=== PATIENT | female | born 1980 | race Caucasian/White ===

== ENCOUNTER 2023-09-19 10:36 | Emergency (ER) | payer OTHER, SELFPAY ==
[2023-09-19 10:52] VITALS: BP 132/87; PULSE 98; RESP 16; TEMP 36.9; O2SAT 98
[2023-09-19 11:16] VITALS: BP 123/94; PULSE 91; RESP 18; O2SAT 99
--- NOTE | 2023-09-19 11:22 | DI.MRI_ITS ---
Exam(s) MR LUMBAR SPINE WO/W EXAM: MR LUMBAR SPINE WO/W CLINICAL HISTORY: BACK PAIN, FEVER TECHNIQUE: Multiplanar multisequence MRI of the Lumbar Spine was performed. CONTRAST MATERIAL: IV Contrast: 11 mL of Dotarem contrast administered. COMPARISON: No exams were available for comparison FINDINGS: Bones: The last intervertebral disc space is designated the L5/S1 level for the numbering purpose of this examination. The vertebral body heights are well maintained. Alignment is satisfactory. The sig nal characteristics are unremarkable. Cord: The conus tip ends at the T12 level. It is of normal size and signal intensity. T12-L1: No disc herniations or bulges are present. L1-2: No disc herniations or bulges are present. L2-3: No disc herniations or bulges are present. L3-4: No disc herniations or bulges are present. L4-5: No disc herniations or bulges are present. L5-S1: No disc herniations or bulges are present. Soft tissues: The visualized SI joints and sacrum are well maintained. The paraspinal soft tissues ar e unremarkable. There is no evidence of suspicious enhancement. IMPRESSION: Negative MRI of the lumbar spine. No evidence of discitis, osteomyelitis or epidural abscess. No ab normal enhancement in the paraspinal soft tissues. DATA REPOSITORY:
[2023-09-19 11:56] LABS: Abs Immature Grans 0.01 10^3/uL (0.0-0.06); Absolute Basophil Count 0.02 10^3/uL (0.0-0.2); Absolute Eosinophil Count 0.02 10^3/uL (0.0-0.7); Absolute Lymphocyte Count 0.82 10^3/uL (1.2-3.4); Absolute Monocyte Count 0.21 10^3/uL (0.1-0.8); Absolute Neutrophil Count 1.03 10^3/uL (1.2-6.7); Basophils % 0.9 %; Eosinophils % 0.9 %; HCT 39.6 % (36.0-46.0); HGB 13.7 g/dL (11.2-15.7); Immature Grans % 0.5 %; Lymphocytes % 38.9 %; MCH 32.6 pg (27.0-33.0); MCHC 34.6 % (32.0-36.0); MCV 94 fL (80-95); MPV 10.5 fL (8.0-11.0); Neutrophils % 48.8 %; Platelet Count 172 10^3/uL (130-400); RDW 11.3 % (11.7-14.6); RDW-SD 38.5 fL; WBC 2.11 10^3/uL (4.4-10.8)
[2023-09-19 11:59] LABS: COVID-19 PCR Negative (Negative); Influenza A PCR Negative (Negative); Influenza B PCR Negative (Negative); RSV PCR Negative (Negative)
[2023-09-19 12:00] LABS: Bilirubin Negative (Negative); Blood Negative (Negative); Clarity Clear (Clear); Glucose >=1000 mg/dL (Negative); Ketones 15 mg/dL (Negative); Leukocyte Esterase Negative (Negative); Nitrite Negative (Negative); Urobilinogen 0.2 mg/dL (Up to 0.2); pH 5.5 (5-8)
[2023-09-19 12:01] LABS: ESR 15 mm/hr (0-20)
[2023-09-19 12:03] LABS: Source Nasopharynx
[2023-09-19 12:12] LABS: ALT 33 U/L (14-59); AST 30 U/L (15-37); Albumin 4.1 g/dL (3.4-5.0); Alkaline Phosphatase 100 U/L (46-116); Anion Gap 11.2 mmol/L (3-11); BUN 10 mg/dL (7-18); Bilirubin, Total 0.39 mg/dL (0.2-1.0); C-Reactive Protein 0.81 mg/dL (<or=0.5); CO2 26.8 mmol/L (21.0-32.0); Calcium 9.4 mg/dL (8.5-10.1); Chloride 97 mmol/L (98-107); Creatine Kinase 132 U/L (26-192); Glucose 432 mg/dL (74-106); Potassium 4.3 mmol/L (3.5-5.1); Sodium 135 mmol/L (136-145); Total Protein 7.6 g/dL (6.4-8.2)
[2023-09-19 12:14] LABS: Bacteria Few HPF (Negative); C & S Indicated? No; Casts Negative LPF (Negative); Crystals Negative HPF (Negative); Epithelial Cells Many HPF (Negative); Mucus Negative (Negative); Other Cells Rare Yeast (Negative); RBC Negative HPF (0-2); WBC Negative HPF (0-5)
[2023-09-19 12:24] LABS: Procalcitonin 0.1 ng/mL
[2023-09-19] MEDS: Insulin REGULAR-Human 100 UNITS/ML UNIT 10 UNITS IV (13:05)
[2023-09-19] MEDS: Normal Saline 1,000 ML 1000 ML IV (13:05)
[2023-09-19 13:44] VITALS: BP 125/77; PULSE 76; O2SAT 95
--- NOTE | 2023-09-19 14:16 | ED.GENADUL_ITS ---
Discharge Plan Disposition Patient Disposition: Home Condition: Stable Discharge Details Clinical Impression: Acute hip pain, Acute hyperglycemia, Back pain Primary Care Provider: None,None ED Provider: Anita Pitt Home Meds and New Rx's Prescriptions: New gabapentin 300 mg capsule 300 mg PO QHS Qty: 60 0RF No Action insulin aspart U-100 [Novolog FlexPen U-100 Insulin] 100 unit/mL (3 mL) insulin pen 1 sliding scale dose subcut USEASDIRECTD Levemir FlexPen 100 unit/mL (3 mL) insulin pen 10 unit subcut QDAY lorazepam 1 mg PO DAILY PRN HPI General Date/Time Provider Initiated Documentation: 09/19/23 11:04 . Limitations to Documentation: no limitations . Information obtained by: patient . HPI Narrative: 43-year-old female with past medical history of type 1 insulin-dependent diabetes presents for evaluation of intermittent fevers and back pain. She reports that she had the onset of right lower back and hip pain about 1 month ago, she was evaluated at her home in the [facility]. She states that at that time it was noted at the hospital that she did have a slightly elevated fever, but no lab work was obtained. Her CT scan imaging was negative. She reports for the last week she has been having daily fever. She reports last highest fever was 3 days ago of 101. She has been taking Naprosyn twice daily which has been improving her body aches and fever. She denies any weakness in her lower extremities. She states that she does do insulin injections, does not have a continuous glucose monitor or insulin pump. She does report that there is an increase of dengue fever in the [facility] currently. Related Data Home Medications Medication Instructions Recorded Confirmed gabapentin 300 mg capsule 300 mg PO QHS #60 caps 09/19/23 insulin aspart U-100 100 unit/mL 1 sliding scale dose subcut 09/19/23 09/19/23 (3 mL) subcutaneous pen (Novolog USEASDIRECTD FlexPen U-100 Insulin aspart) insulin detemir U-100 100 unit/mL 10 unit subcut QDAY 09/19/23 09/19/23 (3 mL) subcutaneous pen (Levemir FlexPen) lorazepam 1 mg PO DAILY PRN 09/19/23 09/19/23 Previous Rx's Medication Instructions Recorded gabapentin 300 mg capsule 300 mg PO QHS #60 caps 09/19/23 Allergies Allergy/AdvReac Type Severity Reaction Status Date / Time Sulfa (Sulfonamide Allergy Hives Verified 09/19/23 10:59 Antibiotics) General Stated Complaint: GenMedical JOHN: 4 Exam Narrative Exam Narrative: Review of Systems: All systems reviewed & are unremarkable except as noted in HPI and below Well-developed, no acute distress Afebrile NCAT PERRL, normal conjunctiva RRR, no murmur Unlabored respiratory effort, clear bilaterally Nondistended abdomen, nontender Extremities w/o deformity, no cyanosis, no edema No midline back tenderness, step-off or deformity No rashes or lesions. no focal neurologic deficits Appropriate mood and affect Course Vital Signs Vital signs: Vital Signs Temperature 36.9 C 09/19/23 10:52 Pulse 98 H 09/19/23 10:52 Respiratory Rate 16 09/19/23 10:52 Blood Pressure 132/87 09/19/23 10:52 Pulse Oximetry 98 09/19/23 10:52 Temperature 36.9 C 09/19/23 10:52 Temperature Source Tympanic 09/19/23 10:52 Pulse 76 09/19/23 13:44 Respiratory Rate 18 09/19/23 11:16 Respiratory Effort Normal 09/19/23 11:16 Respiratory Depth Normal 09/19/23 11:16 Respiratory Pattern Normal 09/19/23 11:16 Blood Pressure 125/77 09/19/23 13:44 Pulse Oximetry 95 09/19/23 13:44 Oxygen Delivery Method Room Air 09/19/23 13:44 Oxygen Flow Rate 0 09/19/23 13:44 Pain Level 10 09/19/23 11:16 Comment right hip and lower back pain 09/19/23 11:16 Lab/Test Results Lab/Test Results: 09/19/23 11:49 Blood Blood Culture - Pending 09/19/23 11:49 Blood Blood Culture - Pending Laboratory Tests Range/Units 09/19/23 09/19/23 11:15 11:49 WBC (4.4-10.8) 10^3/uL 2.11 L RBC (3.93-5.22) 10^6/uL 4.20 Hgb (11.2-15.7) g/dL 13.7 Hct (36.0-46.0) % 39.6 MCV (80-95) fL 94 MCH (27.0-33.0) pg 32.6 MCHC (32.0-36.0) % 34.6 RDW (11.7-14.6) % 11.3 L Plt Count (130-400) 10^3/uL 172 MPV (8.0-11.0) fL 10.5 Immature Gran % % 0.5 Neutrophils % % 48.8 Lymphocytes % % 38.9 Monocytes % % 10.0 Eosinophils % % 0.9 Basophils % % 0.9 Nucleated RBC % (0.0-0.3) % 0.0 Absolute Neutrophils (1.2-6.7) 10^3/uL 1.03 L Absolute Lymphocytes (1.2-3.4) 10^3/uL 0.82 L Absolute Monocytes (0.1-0.8) 10^3/uL 0.21 Absolute Eosinophils (0.0-0.7) 10^3/uL 0.02 Absolute Basophils (0.0-0.2) 10^3/uL 0.02 ESR (0-20) mm/hr 15 Sodium (136-145) mmol/L 135 L Potassium (3.5-5.1) mmol/L 4.3 Chloride (98-107) mmol/L 97 L Carbon Dioxide (21.0-32.0) mmol/L 26.8 Anion Gap (3-11) mmol/L 11.2 H BUN (7-18) mg/dL 10 Creatinine (0.55-1.02) mg/dL 1.0 Est GFR (CKD-EPI 2020) (mL/min/1.73m2) 70.80 Glucose (74-106) mg/dL 432 H Calcium (8.5-10.1) mg/dL 9.4 Total Bilirubin (0.2-1.0) mg/dL 0.39 AST (15-37) U/L 30 ALT (14-59) U/L 33 Alkaline Phosphatase (46-116) U/L 100 Creatine Kinase (26-192) U/L 132 C-Reactive Protein (<or=0.5) mg/dL 0.81 H Total Protein (6.4-8.2) g/dL 7.6 Albumin (3.4-5.0) g/dL 4.1 Procalcitonin ng/mL 0.1 Urine Color (Yellow) Yellow Urine Clarity (Clear) Clear Urine pH (5-8) 5.5 Ur Specific [place] (1.005-1.025) 1.010 Urine Protein (Neg-Trace) mg/dL Negative Urine Ketones (Negative) mg/dL 15 H Urine Blood (Negative) Negative Urine Nitrite (Negative) Negative Urine Bilirubin (Negative) Negative Urine Urobilinogen (Up to 0.2) mg/dL 0.2 Ur Leukocyte Esterase (Negative) Negative Urine RBC (0-2) HPF Negative Urine WBC (0-5) HPF Negative Ur Epithelial Cells (Negative) HPF Many Urine Crystals (Negative) HPF Negative Urine Bacteria (Negative) HPF Few Urine Casts (Negative) LPF Negative Urine Mucus (Negative) Negative Urine Other (Negative) Rare Yeast Ur Culture Indicated? No Urine Glucose (Negative) mg/dL >=1000 H COVID-19 Source Nasopharynx SARS-CoV-2 (PCR) (Negative) Negative Influenza Type A (PCR) (Negative) Negative Influenza Type B (PCR) (Negative) Negative RSV (PCR) (Negative) Negative POC- Test(urine) Negative Medical Decision Making Urgent evaluation of febrile illness. At this time patient is well-appearing and afebrile. She is not currently having the back pain that has been ongoing for the last month. She states that it is worse at nighttime given her recent exposure and location, would consider mosquito borne illness. She does have a history of diabetes which makes me a concern for possible other for insidious infections. She has no lesions or wounds, no evidence of easy bruising. She has no focal focal neurologic deficits however given the severity of her back pain and symptoms and location of this pain, will evaluate for possible epidural abscess. Will obtain blood work and reassess. 1230 Lab work reviewed. She has leukopenia neutropenia. Her CMP is concerning for hyperglycemia with a slightly elevated anion gap. She does also have ketones in her urinalysis. I will resuscitate with IV fluids and give IV insulin so I do not suspect she has severe DKA. Infectious workup with ESR, CRP and procalcitonin is fairly reassuring. Her CRP is slightly elevated, procalcitonin is negative. And her ESR is within normal limits. 1400 Blood sugar has normalized. MRI pending 1615 MRI reviewed, there is no evidence of infectious etiology or abnormality. Discussed lab work findings as well as MRI findings with the patient. At this point there is no clear explanation for her pain. Consider labral tear or arthritis of the hips causing some of the symptoms. She has been going to physical therapy recently and I recommend that she continue this. Given that she is going to stay in the area, I will put her on follow-up with her primary care. Will try gabapentin at night for worsened symptoms. Return precautions advised. Medical Records Medical records reviewed: Yes I reviewed the patient's medical records. Lab Data Lab results reviewed: Yes I reviewed the patient's lab results. Quality:SDOH Health Related Social Needs: No Data to Display PFSH All Active Problems (Updated 09/19/23 @ 16:11 by Anita Pitt MD) Back pain (Acute) Acute hyperglycemia (Acute) Acute hip pain (Acute) Social History Smoking/Tobacco Use Status: Never Smoking risk assessment performed?: Yes Alcohol Intake: current Alcohol Intake frequency: holidays/special occasions only Drug use: Occasionally Substance use type: marijuana Housing: house
[2023-09-19] MEDS: Normal Saline Flush 10 ML SYR IVP (15:04)
[2023-09-19] MEDS: Gadoterate meglumine 20 ML SYRINGE 11 ML IVP (15:06)
--- NOTE | 2023-09-20 04:35 | NUR.NOTE ---
Referral to Care Management to patient needs to establish pcp routinely.Nursing Note:
[2023-09-21 20:56] LABS: Dengue Virus PCR, Serum Positive (Negative)
--- NOTE | 2023-09-21 22:00 | W.ED.FU ---
Date of service: 09/21/23 Time of Service: 22:00 Follow Up Plan: Patient notified that she is positive for dengue fever, reports she is feeling marked improvement. The lab will be reporting this in the [facility]. Strict return precautions reviewed and patient expressed understanding. I discussed all right results personally with patient
== END 2023-09-19 16:30 | disposition home or self-care (01) ==
PROVIDERS: Emergency Provider Emergency Medicine
DX: M54.50 Low back pain, unspecified (principal); R50.9 Fever, unspecified; A90 Dengue fever [classical dengue]; E10.65 Type 1 diabetes mellitus with hyperglycemia; Z79.4 Long term (current) use of insulin; D72.819 Decreased white blood cell count, unspecified
CPT/HCPCS: 72158; 80053; 81025; 82550; 82962; 84145; 85652; 87040; 87637; 87798; 99285; 81003; 81015; 85025; 86140; 99284; J1815

== ENCOUNTER 2023-12-08 00:43 | Outpatient (CLI) | payer OTHER, SELFPAY ==
--- OUTSIDE RECORDS SUMMARY | 2023-12-08 00:57 | XMS_ITS | Encounter Summary ---
Author Organization [facility] Address [address] [place] [address] Care Team Providers Care Registration Officer Name Role Phone Unavailable Primary Care Provider Unavailabl e Encounter Details Date Type Department Care Team (Late st Contact Info) Description 05/15/2002 Results Only [facility] [place] [address] [place] [address] Annamaria Navas APRN 61 [facility] [address] [address] Social History Tobacco Use Types Packs/Day Years Used Date Smoking Tobacco: Never Assessed Sex and Gender Information Value Date Recorded Sex Assigned at Not on file Gender Identity Not on file Sexual Orientation Not on file documented as of this encounter Plan of Treatment Not on file documented as of this encounter Procedures Procedure Name Priority Date/Time Associated Diagnosis Comments ZZHEMOGLOBIN A1C Routine 05/15/2002 11:3 9 EST documented in this encounter Results * (ABNORMAL) HEMOGLOBIN A1C (05/15/2002 11:39 EST) POCT Hgb A1C 7.1(H) 4.5 - 5.7 % [facility] Comment:Test Performed at [facility] 05/15/2002 11:3 9 EST 05/17/2002 11:39 EST Annamaria Navas APRN CHEMISTRY & BLOOD GAS ORDERABLES [facility] [address] [place] [address] documented in this encounter Visit Diagnoses Not on filedocumented in this encounter
--- OUTSIDE RECORDS SUMMARY | 2023-12-08 00:57 | XMS_ITS | Encounter Summary ---
Author Organization [facility] Address [address] [place] [address] Care Team Providers Care Slot Key Person Name Role Phone Unavailable Primary Care Provider Unavailabl e Encounter Details Date Type Department Care Team (Late st Contact Info) Description 12/20/2001 17:07 EDT Hospital Encounter [facility] - Other [address] [place] [address] Annamaria Navas, FUNERAL DIRECTOR AND EMBALMER 61 [facility] [address] [id number] Unknown, Provider, Social History Tobacco Use Types Packs/Day Years Used Date Smoking Tobacco: Never Assessed Sex and Gender Information Value Date Recorded Sex Assigned at Not on file Gender Identity Not on file Sexual Orientation Not on file documented as of this encounter Plan of Treatment Not on file documented as of this encounter Procedures Procedure Name Priority Date/Time Associated Diagnosis Comments CREATININE Routine 12/20/2001 16:43 EDT URINE [id number] RATIO (ACR) Routine 12/20/2001 16:43 EDT T3, TOTAL Routine 12/20/2001 16:43 EDT TSH Routine 12/20/2001 16:43 EDT T4 FREE Routine 12/20/2001 16:43 EDT HEPATIC FUNCTION PANEL (ALB,ALK PHOS,ALT,AST,DBIL,TOT SHILOH,TOT PROT) Routine 12/20/2001 16:43 EDT LIPID PROFILE (INCLUDES CHOLESTEROL, TRIGLYCERIDES, HDL, LDL) Routine 12/20/2001 16:43 EDT ZZHEMOGLOBIN A1C Routine 12/20/2001 10:2 7 EDT documented in this encounter Results * MICROALBUMIN (12/20/2001 16:43 EDT) Creatinine, Urn [place] 153.2 mg/dl [facility] Ur Albumin mg/dl 0.7 <1.9 mg/dl [facility] Ur Alb ug/mg Crea 4.6 ug/mg Crea [facility] Comment: Normal: ??<30 ug/mg Creat Microalbuminuria: ??30-300 ug/mg Creat Clinical albuminuria: ??>300 ug/mg Creat 12/20/2001 16:4 3 EDT 12/20/2001 16:45 EDT Annamaria S Eloise FUNERAL DIRECTOR AND EMBALMER CHEMISTRY & BLOOD GAS ORDERABLES Performing Organization Address City/[facility] Co de Phone Number [facility] [address] [place] [address] * TSH (12/20/2001 16:43 EDT) Pathologist [facility] TSH 1.58 0.35 - 5.50 uIU/ml [facility] 12/20/2001 16:4 3 EDT 12/20/2001 16:45 EDT Annamaria S Eloise FUNERAL DIRECTOR AND EMBALMER CHEMISTRY & BLOOD GAS ORDERABLES Performing Organization Address City/[facility] Co de Phone Number [facility] [address] [place] [address] * T3, TOTAL (12/20/2001 16:43 EDT) Pathologist [facility] T3, Total 129 60 - 181 ng/dl [facility] 12/20/2001 16:4 3 EDT 12/20/2001 16:45 EDT Annamaria Yeungchtel FUNERAL DIRECTOR AND EMBALMER CHEMISTRY & BLOOD GAS ORDERABLES Performing Organization Address [facility] de Phone Number [facility] [address] [place] [address] * LIPID PROFILE (INCLUDES CHOLESTEROL, TRIGLYCERIDES, HDL, LDL) (12/20/2001 16:43 EDT) Cholesterol 134 mg/dl [facility] Comment: Desirable:<200 Borderline:200-239 High Risk:>se=[id number] Triglycerides 93 35 - 160 mg/dl [facility] HDL 44 mg/dl [facility] Comment: Highly Desirable:>60 Desirable:35-60 High Risk:<35 LDL, Calculated 71 mg/dl [facility] Comment: Desirable:<130 Borderline:130-159 High Risk:>uy=535 Chol/HDL Ratio 3.0 [facility] 12/20/2001 16:4 3 EDT 12/20/2001 16:45 EDT Annamaria Israel Eloise FUNERAL DIRECTOR AND EMBALMER CHEMISTRY & BLOOD GAS ORDERABLES Performing Organization Address [facility] de Phone Number [facility] [address] [place] [address] * LIVER FUNCTION TESTS (12/20/2001 16:43 EDT) Albumin 4.8 3.0 - 5.5 g/dl [facility] Total Protein 8.1 6.0 - 8.5 g/dl [facility] Total Alkaline Phosphatase 62 38 - 126 U/L [facility] ALT 25 15 - 75 U/L [facility] AST 20 8 - 50 U/L [facility] Unconjugated Bilirubin 0.6 0.1 - 1.1 mg/dl [facility] Conjugated Bilirubin 0.0 0.0 - 0.3 mg/dl [facility] Bilirubin, Total 0.7 0.2 - 1.3 mg/dl [facility] 12/20/2001 16:4 3 EDT 12/20/2001 16:45 EDT Annamaria Israel Eloise FUNERAL DIRECTOR AND EMBALMER CHEMISTRY & BLOOD GAS ORDERABLES Performing Organization Address [facility] Co de Phone Number [facility] [address] [place] [address] * T4 FREE (12/20/2001 16:43 EDT) Free T4 1.3 0.8 - 1.8 ng/dl [facility] 12/20/2001 16:4 3 EDT 12/20/2001 16:45 EDT Annamaria Israel Eloise FUNERAL DIRECTOR AND EMBALMER CHEMISTRY & BLOOD GAS ORDERABLES Performing Organization Address [facility] Co de Phone Number [facility] [address] [place] [address] * CREATININE (12/20/2001 16:43 EDT) [facility] Creatinine 0.8 0.7 - 1.5 mg/dl [facility] 12/20/2001 16:4 3 EDT 12/20/2001 16:45 EDT Annamaria Israel Eloise [facility] Performing Organization Address [facility] Co de Phone Number [facility] [address] [place] [address] * (ABNORMAL) HEMOGLOBIN A1C (12/20/2001 10:27 EDT) [facility] POCT Hgb A1C 7.6(H) 4.5 - 5.7 % [facility] Comment:Test Performed at [facility] 12/20/2001 10:2 7 EDT 12/21/2001 10:27 EDT Annamaria Israel Eloise FUNERAL DIRECTOR AND EMBALMER CHEMISTRY & BLOOD GAS ORDERABLES Performing Organization Address [facility] Co de Phone Number [facility] [address] [place] [address] documented in this encounter Visit Diagnoses Not on filedocumented in this encounter
--- OUTSIDE RECORDS SUMMARY | 2023-12-08 00:57 | XMS_ITS | Encounter Summary ---
Author Organization [facility] Address [address] [place] [address] Care Team Providers Care Counter Intelligence Agent Name Role Phone Unavailable Primary Care Provider Unavailabl e Encounter Details Date Type Department Care Team (Late st Contact Info) Description 11/13/2001 Results Only [facility] [place] [facility] [address] [place] [address] Jeovanny Zheng MD [address] [place] [id number] Social History Tobacco Use Types Packs/Day Years Used Date Smoking Tobacco: Never Assessed Sex and Gender Information Value Date Recorded Sex Assigned at Not on file Gender Identity Not on file Sexual Orientation Not on file documented as of this encounter Plan of Treatment Not on file documented as of this encounter Procedures Procedure Name Priority Date/Time Associated Diagnosis Comments SURGICAL PATHOLOGY Routine 11/13/2001 0:00 EDT documented in this encounter Results * SURGICAL PATHOLOGY (11/13/2001 0:00 EDT) Pathology Report: SURGICAL PATHOLOGY REPORT Reports generated via electronic interface contain original data; however they are lacking the format of the original report. Caution should be taken when reading/interpreti ng unformatted reports. Name: ? MATTHEW GORMAN ? Accession #: ? [id number] ? : ? 1980 (Age: 21) ??F ? Collect Date: ? 11/13/2001 ? Location: ? [facility] ? Receive Date: ? 11/14/2001 ? Provider: JEOVANNY ZHENG MD Copy to: MAHNAZ AYALA MD ? Final Pathologic Diagnosis: ? Skin of sabianist, left, excisional biopsy: - Melanocytic nevus, intradermal type. Document reviewed and electronically signed by: Annamaria Gonzalez MD Report ??Date: 11/15/2001 16:02 By the signature above, the attending physician certifies that he/she has personally conducted a gross and/or microscopic examination of the described specimens and rendered or confirmed the above diagnosis. Specimen(s) Received: ? L sabianist Clinical History: ? Benign skin lesion; clinical diagnosis code: ??782.2 Gross Description: ? Received in formalin labelled Manges and L sabianist is an unoriented elliptical excision of skin that measures 0.7 x 0.2 cm and is excised to a depth of 0.5 cm. ??The cutaneous surface is padilla-white with a central papule that measures 0.3 x 0.2 cm. ??The specimen is inked in black, serially sectioned and entirely submitted as (A1) and (A2) with (A1) being the central sections and (A2) being the tips submitted reverse en face. ??(Dr. Alejandre)/[facility] End of Report [facility] 11/13/2001 11/14/2001 15: 07 EDT Jeovanny Zheng MD PATHOLOGY ORDERABLE S [facility] [address] [place] [address] documented in this encounter Visit Diagnoses Not on filedocumented in this encounter
--- OUTSIDE RECORDS SUMMARY | 2023-12-08 00:57 | XMS_ITS | Referral Summary ---
Author Organization [facility] Address [address] [place] [address] Care Team Providers Care Puppy Walker Name Role Phone Ravi Vergara MD Primary Care Provider Unavailab le Social History Tobacco Use Types Packs/Day Years Used Date Smoking Tobacco: Never Assessed Sex and Gender Information Value Date Recorded Sex Assigned at Not on file Gender Identity Not on file Sexual Orientation Not on file Plan of Treatment Not on file Care Teams Puppy Walker Relationship Specialty Start Date End Date Ravi Vergara MD PCP - General 10/18/16
--- OUTSIDE RECORDS SUMMARY | 2023-12-08 00:57 | XMS_ITS | Encounter Summary ---
Author Organization [facility] Address [address] [place] [address] Care Team Providers Care Trailer Chief Name Role Phone Unavailable Primary Care Provider Unavailabl e Encounter Details Date Type Department Care Team (Late st Contact Info) Description 09/22/1999 22:21 EDT Hospital Encounter [facility] - Other [address] [place] [address] Miguel Collins MD [address] [place] [address] Unknown, ProviderMD Social History Tobacco Use Types Packs/Day Years Used Date Smoking Tobacco: Never Assessed Sex and Gender Information Value Date Recorded Sex Assigned at Not on file Gender Identity Not on file Sexual Orientation Not on file documented as of this encounter Plan of Treatment Not on file documented as of this encounter Procedures Procedure Name Priority Date/Time Associated Diagnosis Comments ZZHEMOGLOBIN A1C Routine 09/22/1999 15:1 5 EDT URINE CHEMICAL (DIP) & SEDIMENT (MICRO) WITHOUT REFLEX TO CULTURE Routine 09/22/1999 14:57 EDT THYROID AB Routine 09/22/1999 14:56 EDT TSH Routine 09/22/1999 14:56 EDT T4 Routine 09/22/1999 14:56 EDT CORTISOL Routine 09/22/1999 14:56 EDT documented in this encounter Results * HEMOGLOBIN A1C (09/22/1999 15:15 EDT) POCT Hgb A1C 5.1 4.5 - 5.7 % [facility] Comment:Test Performed at [facility] 09/22/1999 15:1 5 EDT 09/23/1999 14:58 EDT Miguel Collins MD CHEMISTRY & BLO OD GAS ORDERABLES [facility] [address] [place] [address] * (ABNORMAL) UA WITH MICROSCOPIC (09/22/1999 14:57 EDT) Color, UA Yellow [facility] Clarity, UA Clear [facility] Glucose, UA Norm NORM [facility] Bilirubin, UA Neg NEG [facility] Ketones, UA Neg NEG [facility] Specific [place], Urine 1.010 1.005 - 1.02 [facility] Blood, UA Large(A) NEG [facility] pH, UA 5.0 5.0 - 9.0 [facility] Protein, UA Neg NEG [facility] Urobilinogen, UA Norm NORM mg/dL [facility] Nitrite, UA Neg NEG [facility] Leuk Esterase Small(A) NEG [facility] WBC, UA less than 1 0 - 5 /HPF [facility] RBC, UA 1 to 5 0 - 5 /HPF [facility] Squam Epithel, UA Frequent(A) NS /HPF [facility] Renal Epithel, UA None seen NS /HPF [facility] Bacteria, UA None seen NS /HPF [facility] Crystals, UA None seen /HPF [facility] Hyaline Casts, UA Rare Hyaline /LPF [facility] UA Comment Microscopic results are unreliable on urines unrefrig >2hrs or refrig >8hrs. [facility] 09/22/1999 14:5 7 EDT 09/22/1999 15:06 EDT Miguel Collins MD URINALYSIS ORDE RABLES [facility] [address] [place] [address] * TSH (09/22/1999 14:56 EDT) TSH 1.14 0.35 - 5.50 uIU/ml [facility] 09/22/1999 14:5 6 EDT 09/22/1999 15:05 EDT Miguel Collins MD CHEMISTRY & BLO OD GAS ORDERABLES Performing Organization Address [facility] Co de Phone Number [facility] [address] [place] [address] * THYROID AB (09/22/1999 14:56 EDT) Microsomal Ab <100 <100 [facility] Thyroglobulin Ab <10 <10 [facility] 09/22/1999 14:5 6 EDT 09/22/1999 15:05 EDT Miguel Collins MD HISTORICAL LAB FOR SQ LOAD Performing Organization Address City/[facility] Co de Phone Number [facility] [address] [place] [address] * T4 (09/22/1999 14:56 EDT) T4, Total 5.9 4.5 - 10.9 ug/dl [facility] 09/22/1999 14:5 6 EDT 09/22/1999 15:05 EDT Miguel Collins MD CHEMISTRY & BLO OD GAS ORDERABLES Performing Organization Address City/[facility]/ZIP Co de Phone Number [facility] [address] [place] [address] * CORTISOL (09/22/1999 14:56 EDT) Cortisol 19 ug/dl [facility] Comment: 7-9a.m.=4.3-22.4 3-5p.m.=3.1-16.7 09/22/1999 14:5 6 EDT 09/22/1999 15:05 EDT Miguel Collins MD CHEMISTRY & BLO OD GAS ORDERABLES Performing Organization Address City/State/[facility] Co de Phone Number [facility] [address] [place] [address] documented in this encounter Visit Diagnoses Not on filedocumented in this encounter
--- OUTSIDE RECORDS SUMMARY | 2023-12-08 00:57 | XMS_ITS | Encounter Summary ---
Author Organization [facility] Address [address] [place] [address] Care Team Providers Care Police Records Clerk Name Role Phone Unavailable Primary Care Provider Unavailabl e Encounter Details Date Type Department Care Team (Late st Contact Info) Description 01/15/2001 19:29 EDT Hospital Encounter [facility] - Other [address] [place] [address] Annamaria Navas, BUSINESS ECONOMIST 61 [facility] [address] [phone] Unknown, Provider, Social History Tobacco Use Types Packs/Day Years Used Date Smoking Tobacco: Never Assessed Sex and Gender Information Value Date Recorded Sex Assigned at Not on file Gender Identity Not on file Sexual Orientation Not on file documented as of this encounter Plan of Treatment Not on file documented as of this encounter Procedures Procedure Name Priority Date/Time Associated Diagnosis Comments URINE PUBSIRA-RU-VJBVYHXYUM RATIO (ACR) Routine 01/15/2001 14:21 EDT BILIRUBIN DIRECT/INDIRECT Routine 01/15/2001 14:16 EDT LIPID PROFILE (INCLUDES CHOLESTEROL, TRIGLYCERIDES, HDL, LDL) Routine 01/15/2001 14:16 EDT COMPREHENSIVE METABOLIC PANEL (CMP) Routine 01/15/2001 14:16 EDT ZZHEMOGLOBIN A1C Routine 01/15/2001 13:4 1 EDT documented in this encounter Results * MICROALBUMIN (01/15/2001 14:21 EDT) Creatinine, Urn [place] 143.2 mg/dl [facility] Ur Albumin mg/dl 0.7 <1.9 mg/dl [facility] Ur Alb ug/mg Crea 4.9 ug/mg Crea [facility] Comment: Normal: ??<30 ug/mg Creat Microalbuminuria: ??30-300 ug/mg Creat Clinical albuminuria: ??>300 ug/mg Creat 01/15/2001 14:2 1 EDT 01/15/2001 15:15 EDT Annamaria Navas APRN CHEMISTRY & BLOOD GAS ORDERABLES Performing Organization Address [facility] de Phone Number [facility] [address] [place] [address] * LIPID PROFILE (INCLUDES CHOLESTEROL, TRIGLYCERIDES, HDL, LDL) (01/15/2001 14:16 EDT) Cholesterol 164 mg/dl [facility] Comment: Desirable:<200 Borderline:200-239 High Risk:>[id number] Triglycerides 110 35 - 160 mg/dl [facility] HDL 48 mg/dl [facility] Comment: Highly Desirable:>60 Desirable:35-60 High Risk:<35 LDL, Calculated 94 mg/dl [facility] Comment: Desirable:<130 Borderline:130-159 High Risk:>[id number] Chol/HDL Ratio 3.4 LUIZA RODRIGUEZ 01/15/2001 14:1 6 EDT 01/15/2001 14:31 EDT Annamaria Navas APRN CHEMISTRY & BLOOD GAS ORDERABLES Performing Organization Address [facility] de Phone Number [facility] [address] [place] [address] * DIRECT BILIRUBIN (01/15/2001 14:16 EDT) Conjugated Bilirubin 0.0 0.0 - 0.3 mg/dl [facility] Unconjugated Bilirubin 0.3 0.1 - 1.1 mg/dl [facility] 01/15/2001 14:1 6 EDT 01/15/2001 14:31 EDT Annamaria Navas APRN CHEMISTRY & BLOOD GAS ORDERABLES Performing Organization Address [facility] de Phone Number [facility] [address] [place] [address] * COMPREHENSIVE METABOLIC PANEL (01/15/2001 14:16 EDT) [facility] Potassium 4.4 3.5 - 5.0 mEq/L [facility] Sodium 144 136 - 145 mEq/L [facility] Chloride 102 96 - 110 mEq/L [facility] CO2 29 24 - 30 mEq/L [facility] Total Alkaline Phosphatase 54 38 - 126 U/L [facility] Bilirubin, Total 0.4 0.2 - 1.3 mg/dl [facility] AST 18 8 - 50 U/L [facility] ALT 20 15 - 75 U/L [facility] Albumin 4.4 3.0 - 5.5 g/dl [facility] Total Protein 8.4 6.0 - 8.5 g/dl [facility] Creatinine 0.8 0.7 - 1.5 mg/dl [facility] BUN 10 10 - 26 mg/dl [facility] Calcium 10.0 8.5 - 10.5 mg/dl [facility] Calculated Calcium 10.0 8.5 - 10.5 mg/dl [facility] Glucose, Serum 82 70 - 110 mg/dl [facility] Albumin/Globulin Ratio 1.1 [facility] 01/15/2001 14:1 6 EDT 01/15/2001 14:31 EDT Annamaria Navas APRN CHEMISTRY & BLOOD GAS ORDERABLES Performing Organization Address [facility] Co de Phone Number [facility] [address] [place] [address] * (ABNORMAL) HEMOGLOBIN A1C (01/15/2001 13:41 EDT) Pathologist [facility] POCT Hgb A1C 6.2(H) 4.5 - 5.7 % [facility] Comment:Test Performed at [facility] 01/15/2001 13:4 1 EDT 01/16/2001 13:41 EDT Annamaria Navas BUSINESS ECONOMIST CHEMISTRY & BLOOD GAS ORDERABLES [facility] [address] [place] [address] documented in this encounter Visit Diagnoses Not on filedocumented in this encounter
--- OUTSIDE RECORDS SUMMARY | 2023-12-08 00:57 | XMS_ITS | Encounter Summary ---
Author Organization [facility] Address [address] [place] [address] Care Team Providers Care Line Haul Driver Name Role Phone Unavailable Primary Care Provider Unavailabl e Encounter Details Date Type Department Care Team (Late st Contact Info) Description 01/27/2003 18:35 EST Hospital Encounter [facility] - Other [address] [place] [address] Annamaria Navas, TURPENTINER [address] [phone] Social History Tobacco Use Types Packs/Day Years Used Date Smoking Tobacco: Never Assessed Sex and Gender Information Value Date Recorded Sex Assigned at Not on file Gender Identity Not on file Sexual Orientation Not on file documented as of this encounter Plan of Treatment Not on file documented as of this encounter Visit Diagnoses Not on filedocumented in this encounter
--- OUTSIDE RECORDS SUMMARY | 2023-12-08 00:57 | XMS_ITS | Encounter Summary ---
Author Organization [facility] Address [address] [place] [address] Care Team Providers Care Painting Manager Name Role Phone Unavailable Primary Care Provider Unavailabl e Encounter Details Date Type Department Care Team (Late st Contact Info) Description 06/25/2001 Results Only [facility] Bariatric Surgery - [place] [address] [place] [address] Annamaria Navas APRN 61 [facility] [address] [address] Social History Tobacco Use Types [...] Date/Time Associated Diagnosis Comments ZZHEMOGLOBIN A1C Routine 06/25/2001 10:3 6 EST documented in this encounter Results * (ABNORMAL) HEMOGLOBIN A1C (06/25/2001 10:36 EST) POCT Hgb A1C 6.4(H) 4.5 - 5.7 % [facility] Comment:Test Performed at [facility] 06/25/2001 10:3 6 EST 06/28/2001 10:36 EST Annamaria Navas APRN CHEMISTRY & BLOOD GAS ORDERABLES [facility] [address] [place] [address] documented in this encounter Visit Diagnoses Not on filedocumented in this encounter
--- OUTSIDE RECORDS SUMMARY | 2023-12-08 00:57 | XMS_ITS | Encounter Summary ---
Author Organization [facility] Address [address] [place] [address] Care Team Providers Care Commercial Review Appraiser Name Role Phone Unavailable Primary Care Provider Unavailabl e Encounter Details Date Type Department Care Team (Late st Contact Info) Description 01/27/2003 Results Only [facility] Bariatric Surgery - [place] [address] [place] [address] Annamaria Navas, INTRAVENOUS THERAPY NURSE 61 [facility] [address] [place] [phone] Social History Tobacco Use Types Packs/Day Years Used Date Smoking Tobacco: Never Assessed Sex and Gender Information Value Date Recorded Sex Assigned at Not on file Gender Identity Not on file Sexual Orientation Not on file documented as of this encounter Plan of Treatment Not on file documented as of this encounter Procedures Procedure Name Priority Date/Time Associated Diagnosis Comments CREATININE Routine 01/27/2003 16:47 EST T3, TOTAL Routine 01/27/2003 16:47 EST TSH Routine 01/27/2003 16:47 EST T4 FREE Routine 01/27/2003 16:47 EST HEPATIC FUNCTION PANEL (ALB,ALK PHOS,ALT,AST,DBIL,TOT SHILOH,TOT PROT) Routine 01/27/2003 16:47 EST LIPID PROFILE (INCLUDES CHOLESTEROL, TRIGLYCERIDES, HDL, LDL) Routine 01/27/2003 16:47 EST URINE [id number] RATIO (ACR) Routine 01/27/2003 16:46 EST ZZHEMOGLOBIN A1C Routine 01/27/2003 14:0 0 EST documented in this encounter Results * TSH (01/27/2003 16:47 EST) TSH 1.59 0.35 - 5.50 uIU/ml [facility] 01/27/2003 16:4 7 EST 01/27/2003 16:49 EST Annamaria S Eloise INTRAVENOUS THERAPY NURSE CHEMISTRY & BLOOD GAS ORDERABLES Performing Organization Address [facility] Co de Phone Number [facility] [address] [place] [address] * T3, TOTAL (01/27/2003 16:47 EST) T3, Total 126 60 - 181 ng/dl [facility] 01/27/2003 16:4 7 EST 01/27/2003 16:49 EST Annamaria S Eloise INTRAVENOUS THERAPY NURSE CHEMISTRY & BLOOD GAS ORDERABLES Performing Organization Address [facility] de Phone Number [facility] [address] [place] [address] * LIPID PROFILE (INCLUDES CHOLESTEROL, TRIGLYCERIDES, HDL, LDL) (01/27/2003 16:47 EST) Cholesterol 122 mg/dl [facility] Comment: Desirable:<200 Borderline:200-239 High Risk:>[id number] Triglycerides 74 35 - 160 mg/dl [facility] HDL 40 mg/dl [facility] Comment: Highly Desirable:>60 Desirable:35-60 High Risk:<35 LDL, Calculated 67 mg/dl [facility] Comment: Desirable:<130 Borderline:130-159 High Risk:>wd=[id number] Chol/HDL Ratio 3.1 [facility] 01/27/2003 16:4 7 EST 01/27/2003 16:49 EST Annamaria S Eloise INTRAVENOUS THERAPY NURSE CHEMISTRY & BLOOD GAS ORDERABLES Performing Organization Address [facility] Co de Phone Number [facility] [address] [place] [address] * LIVER FUNCTION TESTS (01/27/2003 16:47 EST) Albumin 4.2 3.0 - 5.5 g/dl [facility] Total Protein 7.0 6.0 - 8.5 g/dl [facility] Total Alkaline Phosphatase 58 38 - 126 U/L [facility] ALT 24 15 - 75 U/L [facility] AST 19 8 - 50 U/L [facility] Unconjugated Bilirubin 0.4 0.1 - 1.1 mg/dl [facility] Conjugated Bilirubin 0.0 0.0 - 0.3 mg/dl [facility] Bilirubin, Total 0.2 0.2 - 1.3 mg/dl [facility] 01/27/2003 16:4 7 EST 01/27/2003 16:49 EST Annamaria Benderel INTRAVENOUS THERAPY NURSE CHEMISTRY & BLOOD GAS ORDERABLES Performing Organization Address [facility] de Phone Number [facility] [address] [place] [address] * T4 FREE (01/27/2003 16:47 EST) Free T4 1.3 0.8 - 1.8 ng/dl [facility] 01/27/2003 16:4 7 EST 01/27/2003 16:49 EST Annamaria Benderel INTRAVENOUS THERAPY NURSE CHEMISTRY & BLOOD GAS ORDERABLES Performing Organization Address [facility] Co de Phone Number [facility] [address] [place] [address] * CREATININE (01/27/2003 16:47 EST) Creatinine 0.8 0.7 - 1.5 mg/dl [facility] 01/27/2003 16:4 7 EST 01/27/2003 16:49 EST Annamaria Navas APRN HISTORICAL LAB FO R SQ LOAD Performing Organization Address [facility] de Phone Number [facility] [address] [place] [address] * MICROALBUMIN (01/27/2003 16:46 EST) Creatinine, Urn [place] 102.3 mg/dl [facility] Ur Albumin mg/dl 0.2 <1.9 mg/dl [facility] Ur Alb ug/mg Crea 2.0 ug/mg Crea [facility] Comment: Normal: ??<30 ug/mg Creat Microalbuminuria: ??30-300 ug/mg Creat Clinical albuminuria: ??>300 ug/mg Creat 01/27/2003 16:4 6 EST 01/27/2003 16:49 EST Annamaria Navas APRN CHEMISTRY & BLOOD GAS ORDERABLES Performing Organization Address [facility] de Phone Number [facility] [address] [place] [address] * (ABNORMAL) HEMOGLOBIN A1C (01/27/2003 14:00 EST) Pathologist [facility] POCT Hgb A1C 9.8(H) 4.5 - 5.7 % [facility] Comment:Test Performed at [facility] 01/27/2003 14:0 0 EST 01/28/2003 14:00 EST Annamaria Navas APRN CHEMISTRY & BLOOD GAS ORDERABLES Performing Organization Address [facility] Co de Phone Number [facility] [address] [place] [address] documented in this encounter Visit Diagnoses Not on filedocumented in this encounter
--- OUTSIDE RECORDS SUMMARY | 2023-12-08 00:57 | XMS_ITS | Clinical Summary ---
Author Organization [facility] Address [address] [place] [address] Care Team Providers Care Generator Assembler Name Role Phone Ravi Vergara MD Primary Care Provider Unavailab le Social History Tobacco Use Types Packs/Day Years Used Date Smoking Tobacco: Never Assessed Sex and Gender Information Value Date Recorded Sex Assigned at Not on file Gender Identity Not on file Sexual Orientation Not on file Plan of Treatment Health Maintenance Due Date Last Done Comments Hepatitis C Screen 1980 Hepatitis B Vaccine (1 of 3 - 19+ 3-dose series) 04/18 COVID-19 Vaccine ( season) 2023 Care Teams Generator Assembler Relationship Specialty Start Date End Date Ravi Vergara MD PCP - General 10/18/16
--- OUTSIDE RECORDS SUMMARY | 2023-12-08 00:57 | XMS_ITS | Encounter Summary ---
Author Organization [facility] Address [address] [place] [address] Care Team Providers Care Painter Decorator Name Role Phone Unavailable Primary Care Provider Unavailabl e Encounter Details Date Type Department Care Team (Late st Contact Info) Description 03/31/2003 Results Only [facility] Bariatric Surgery - [place] [address] [place] [address] Annamaria Navas APRN 61 [facility] [address] [address] Social History Tobacco Use Types [...] Date/Time Associated Diagnosis Comments ZZHEMOGLOBIN A1C Routine 03/31/2003 11:0 4 EST documented in this encounter Results * (ABNORMAL) HEMOGLOBIN A1C (03/31/2003 11:04 EST) POCT Hgb A1C 7.6(H) 4.5 - 5.7 % [facility] Comment:Test Performed at [facility] 03/31/2003 11:0 4 EST 04/02/2003 11:04 EST Annamaria Navas APRN CHEMISTRY & BLOOD GAS ORDERABLES [facility] [address] [place] [address] documented in this encounter Visit Diagnoses Not on filedocumented in this encounter
--- NOTE | 2023-12-08 07:30 | DI.MAMMO_ITS ---
Exam(s) MAMMO SCREENING EXAM: MAMMO SCREENING CLINICAL HISTORY: screening,Z12.39 TECHNIQUE: Mammograms were interpreted according to the usual protocol including computer analysis w iLive CAD system, tomosynthesis and C-view imaging. COMPARISON: None. Baseline examination. FINDINGS: The breasts are composed of heterogeneously dense fibroglandular densities, Breast Density category C . No suspicious masses or suspicious microcalcifications are seen. No skin thickening or abnormal axillary lymph nodes are seen. There has been no significant change from prior exams. IMPRESSION: BI-RADS Category 1, Negative mammogram. Yearly screening mammography is recommended. Breast Density Category C, heterogeneously Dense. The mammogram demonstrates the patient's breast tissue is dense. Dense breast tissue is very common a nd is not abnormal but dense breast tissue can make it harder to find cancer on a mammogram. Also, de nse breast tissue may increase breast cancer risk. This information about the result of the mammogram report was provided to the patient to raise their awareness. Use this report when you speak with the patient about their risks for breast cancer, which includes their family history. At that time, you may recommend additional screening tests (Ultrasound or MRI) as they might be useful based on their r isk. A negative radiographic report should not delay biopsy if a dominant or clinically suspicious mass is present. Up to ten percent of cancers are not identified on mammography. A negative report may reinforce clinical impression. Adenosis and dense breasts may obscure an underlying neoplasm. False positive reports average 6 to 10%.
== END 2023-12-08 01:03 ==
LOC: DI 00:44
PROVIDERS: PCP Family Medicine; Visit Provider Family Medicine
DX: Z12.31 Encounter for screening mammogram for malignant neoplasm of breast (principal)
CPT/HCPCS: 77063; 77067

== ENCOUNTER 2023-12-19 12:29 | Outpatient (CLI) | payer OTHER, SELFPAY ==
--- NOTE | 2023-12-19 12:15 | DI.RAD_ITS ---
Exam(s) XR HIP LT COMPLETE AP PELVIS EXAM: XR HIP LT COMPLETE AP PELVIS CLINICAL HISTORY: evaluate pathology.lt hip pain, m25.552. TECHNIQUE: 2D digital imaging was performed. COMPARISON: No exams were available for comparison FINDINGS: Two views No evidence of pelvic nor hip fracture. No hip joint space narrowing. Bone density is normal. No e vidence of avascular necrosis. Additional lateral view of the left hip does not reveal joint space n arrowing. Small osteophytic densities noted off the superolateral aspect of the left acetabulum prob ably ununited apophysis. Bone density in the pelvis is normal. No significant lytic nor blastic lesions. The sacroiliac join ts appear unremarkable. Vascular calcification is noted within the internal iliac arteries in both sides of the pelvis. IMPRESSION: No significant osseous findings in the hips and pelvis Vascular calcification noted in the internal iliac arteries on both sides of the pelvis. DATA REPOSITORY: RADIATION DOSE DELIVERED:
== END 2023-12-19 12:49 ==
PROVIDERS: PCP Family Medicine; Visit Provider Nurse Practitioner Family
DX: M25.552 Pain in left hip (principal)
CPT/HCPCS: 73502

== ENCOUNTER 2024-11-18 11:57 | Outpatient (REF) | payer OTHER, SELFPAY ==
--- NOTE | 2024-11-18 11:40 | PAPFT_PTH ---
PATIENT: Matthew Travis LOC: [facility] U#:[id number] AGE/SX: 44/F ROOM: RE11/18/[address]: Barbara Ventura DO : 1980 BED: DIS: 11/18/2024 SPEC #: [id number] RECD: 11/18/24 13:06 STATUS: KEESHA REQ #: [id number] ORTIZ: 11/18/24 11:[address]: Barbara Ventura DEPT: [facility] Cytology RECD BY: Kiki Christina ENTERED: 11/18/24 13:06 SP TYPE: PAPFT OTHR DR: Nicolas Buenrostro DO Tissues: 1 - CX/ENDOCX FOR PAP SMEARS Procedures: PAP THIN PREP/UVM Screening HPV DNA PROBE Comments: [id number] (HPV 16 & 18/45)
== END 2024-11-18 11:58 | disposition home or self-care (01) ==
LOC: LBN 11:57
PROVIDERS: PCP Family Medicine; Visit Provider Obstetrics & Gynecology
DX: Z11.51 Encounter for screening for human papillomavirus (HPV) (principal); Z01.419 Encounter for gynecological examination (general) (routine) without abnormal findings; R87.613 High grade squamous intraepithelial lesion on cytologic smear of cervix (HGSIL)
CPT/HCPCS: 88142; 87624

== ENCOUNTER 2024-12-09 00:27 | Outpatient (CLI) | payer OTHER, SELFPAY ==
--- NOTE | 2024-12-09 15:00 | DI.MAMMO_ITS ---
Exam(s) MAMMO SCREENING EXAM: MAMMO SCREENING CLINICAL HISTORY: screening TECHNIQUE: Bilateral full field digital CC and MLO mammographic images were obtained with 3D tomosynthesis and utilizing computer aided detection (CAD). COMPARISON: Comparison is made with prior examinations. FINDINGS: Masses/Architectural Distortion: No suspicious masses or areas of architectural distortion are present. Microcalcifications: No suspicious pleomorphic-type are seen. Skin Thickening/Nipple Retraction: None. IMPRESSION: 1. No significant interval change with no specific features of malignancy noted. 2. Unless there is more urgent need, screening mammography is recommended, as per [place] [employer] guidelines. BI-RADS Category 1 - Negative Breast Density - Category C - The breast are heterogeneously dense, which may obscure small masses. Breast density Category C or D implies that the patient has dense breast tissue. Dense breast tissue can make it harder to find cancer on a mammogram. Dense breast tissue is also associated with an increased risk of breast cancer. This information about the result of the mammogram report was provided to the patient to raise their awareness. Use this report when you speak with the patient about their risks for breast cancer, which includes their family history. At that time, you may recommend additional screening tests (Ultrasound or MRI) as these tests may add significant information. A negative radiographic report should not delay biopsy if a dominant or clinically suspicious mass is present. Up to ten percent of cancers are not identified on mammography. A negative report may reinforce clinical impression. Adenosis and dense breasts may obscure an underlying neoplasm. False positive reports average 6 to 10%. Patient will receive a letter notifying them of these results.
== END 2024-12-09 00:47 ==
PROVIDERS: PCP Family Medicine; Visit Provider Obstetrics & Gynecology
DX: Z12.31 Encounter for screening mammogram for malignant neoplasm of breast (principal)
CPT/HCPCS: 77063; 77067

== ENCOUNTER 2024-12-11 13:34 | Outpatient (REF) | payer OTHER, SELFPAY ==
--- NOTE | 2024-12-11 13:00 | ENDO_PTH ---
PATIENT: Matthew Travis LOC: [facility] U#:[id number] AGE/SX: 44/F ROOM: RE12/11/[address]: Barbara Ventura DO : 1980 BED: DIS: 12/11/2024 SPEC #: [id number] RECD: 12/11/24 17:21 STATUS: KEESHA RE #: [id number] ORTIZ: 12/11/24 13:[address]: Barbara Ventura DEPT: Surgical Specimen RECD BY: Kiki Christina ENTERED: 12/11/24 17:21 SP TYPE: Endo OTHR DR: Nicolas Buenrostro DO Tissues: 1 - ENDOCERVICAL BX/CURRETTE 2 - CERVICAL BIOPSY Procedures: GROSS AND MICRO LEVEL 4 IMMUNOPEROXIDASE STAIN Comments: [id number]
== END 2024-12-11 13:35 | disposition home or self-care (01) ==
LOC: LBN 13:34
PROVIDERS: PCP Family Medicine; Visit Provider Obstetrics & Gynecology
DX: D64.0 Hereditary sideroblastic anemia (principal); N87.1 Moderate cervical dysplasia; D06.9 Carcinoma in situ of cervix, unspecified
CPT/HCPCS: 88305; 88361

== ENCOUNTER 2024-12-23 07:25 | Outpatient (CLI) | payer OTHER, SELFPAY ==
[2024-12-23 10:56] LABS: Abs Immature Grans 0.01 10^3/uL (0.0-0.06); HCT 37.5 % (36.0-46.0); HGB 12.5 g/dL (11.2-15.7); Immature Grans % 0.2 %; MCH 30.9 pg (27.0-33.0); MCHC 33.3 % (32.0-36.0); MCV 93 fL (80-95); MPV 10.2 fL (8.0-11.0); Platelet Count 299 10^3/uL (130-400); RBC 4.04 10^6/uL (3.93-5.22); RDW 11.8 % (11.7-14.6); RDW-SD 40.1 fL; WBC 6.63 10^3/uL (4.4-10.8)
== END 2024-12-23 07:26 | disposition home or self-care (01) ==
LOC: LBO 12-24 07:25
PROVIDERS: PCP Family Medicine; Visit Provider Obstetrics & Gynecology
DX: Z01.818 Encounter for other preprocedural examination (principal)
CPT/HCPCS: 36415; 86850; 86900; 86901; 85025

== ENCOUNTER 2024-12-25 07:05 | Day surgery (SDC) | payer OTHER, SELFPAY ==
[2024-12-25] VITALS (10 sets, daily range): BP systolic 107–131; BP diastolic 51–79; PULSE 57–78; RESP 10–18; TEMP 36–36.9; O2SAT 99–100; BMI 20.7
[2024-12-25] MEDS: Lactated Ringers 1,000 ML 125 ML IV (07:58)
--- NOTE | 2024-12-25 08:27 | W.ANESPRE ---
General Info Date of Service Date Performed: 12/25/24 Height: 5 ft 7 in Weight: 59.9 kg Body Mass Index (BMI): 20.7 Surgical Procedure: Operation Date: 12/25/24 08:40 Proposed Procedure Side Surgeon p Cold Knife Conization Barbara Ventura DO Meds Allergies and Home Medications Allergies Allergy/AdvReac Type Severity Reaction Status Date / Time Sulfa (Sulfonamide Allergy Hives Verified 12/25/24 07:29 Antibiotics) Home Medication ?Medication ?Instructions ?Recorded blood-glucose,oscillograph technician,cont #1 ea 11/28/23 (FreeStyle [place] 3 [place]) blood-glucose sensor (FreeStyle #1 ea 12/20/23 Taylor 3 Sensor device) insulin aspart 4 unit subcut TID Diabetes 11/12/24 (niacinamide)(U-100) 100 unit/mL (3 mL) subcu cartridge (Fiasp Penfill U-100 Insulin) lorazepam 1 mg tablet 1 mg PO DAILY PRN Sleep/anxiety 11/12/24 #30 tabs tacrolimus 0.1 % topical ointment 1 applic topical BID PRN eczema 11/12/24 (Protopic) #60 grams insulin degludec 100 unit/mL (3 13 unit subcut QPM Diabetes 11/15/24 mL) subcutaneous pen (Tresiba FlexTouch U-100 insulin) pen needle, diabetic 32 gauge x #1,200 ea 12/10/24 5/32 (Easy Comfort Pen [place]) Current Visit Medications: Current Medications Generic Name Dose Route Start Last Admin Trade Name Freq PRN Reason Stop Dose Admin Ringer's Solution 1,000 mls @ 125 mls/hr 12/25/24 06:00 12/25/24 07:58 IV 12/25/24 23:59 125 mls/hr INFUSION JAIRO Administration IV Miscellaneous Supplies 1 each 12/25/24 06:00 Iv Access IV 12/25/24 23:59 DIRECTED JAIRO Sodium Chloride 0 ml 12/25/24 06:00 Normal Saline Flush 10 Ml Syr IV 12/25/24 23:59 PRN PRN Sodium Chloride 0 ml 12/25/24 06:00 Normal Saline 10 Ml Vial IJ 12/25/24 23:59 DIRECTED PRN Sterile Water 0 ml 12/25/24 06:00 Water,Injection,Sterile 10 Ml Vial IJ 12/25/24 23:59 DIRECTED PRN [facility] Active Problems Active Problems: Problem Status Onset Code HSIL (high grade squamous intraepithelial lesion) on Pap smear of cervix Acute R87.613 Bartholin's duct cyst Acute N75.0 Well woman exam with routine gynecological exam Acute Z01.419 Facial eczema Acute L30.9 Sciatica Acute M54.30 Type 1 diabetes mellitus without complications Chronic E10.9 Low back pain Acute M54.50 Insomnia Acute G47.00 Medical History Medical History Bartholin's gland abscess Hx: UTI (urinary tract infection) Surgical History Surgical History History of mandibular surgery 06/[address] [facility] [address] Conner Metal in situ, done due to misalignment issues Tobacco Smoking/Tobacco Use Status: Never Passive smoking exposure: No Second hand exposure: No Alcohol Alcohol Intake: current Alcohol intake frequency: a few times a month Alcohol type: wine Substance Use Substance use: Occasionally Substance use type: marijuana Vital Signs and Lab Results Vital Signs Most Recent Vital Signs in EMR: Most Recent Vital Signs Temp Pulse Resp BP Pulse Ox 36.9 C 77 16 107/71 100 12/25/24 07:29 12/25/24 07:29 12/25/24 07:29 12/25/24 07:29 12/25/24 07:29 Point of Care Results Point of Care Results: POC- Test(urine) Negative 12/25/24 07:43 Finger Stick Blood Glucose 131 12/25/24 07:42 Lab Results Blood Type / Crossmatch: Antibody Screen NEGATIVE 12/23/24 Complete Blood Count: WBC, (4.4-10.8) 6.63 10^3/uL 12/23/24, 10:31 RBC, (3.93-5.22) 4.04 10^6/uL 12/23/24, 10:31 Hgb, (11.2-15.7) 12.5 g/dL 12/23/24, 10:31 Hct, (36.0-46.0) 37.5 % 12/23/24, 10:31 Plt Count, (130-400) 299 10^3/uL 12/23/24, 10:31 Panel: Urine HCG, Qual Negative 12/11/24, 12:53 Anesthesia Assessment and Plan Anesthesia History Personal History: No History of Anesthesia Complications Family History: No Family History of Anesthesia Complications Exercise Tolerance Exercise Tolerance: Metabolic Equivalents>4 Pertinent Negatives Pertinent Negatives: No Symptoms of GERD Cardiac & Pulmonary Exam Cardiac Exam: Normal S1/S2 Heart Sounds Pulmonary Exam: Clear Bilateral Breath Sounds Implantable Cardiac Device Does patient have a Pacemaker or an ICD?: No Airway Exam Known Difficult Airway: No Mallampati Class: 2 Mouth Opening: Normal (> 3cm) Thyromental Distance: Greater than 3 cm Neck Range of Motion: Full ROM Neck Circumference: Normal Teeth Condition: Normal Dentition ASA Classification ASA Score: ASA 2 Emergency Case?: No NPO Status NPO Status: NPO Clears >2 hours, Solids >8 hours Status Status: Negative HCG (urine POC) Anesthesia Plan Resuscitation Status: Full Code Anesthesia Technique: General Anesthesia Airway Planned: LMA Monitors Used: Standard Monitors
[2024-12-25] MEDS: Lidocaine 1% Pres-Free W/EPI 1/200,000 10 ML VIAL (09:38)
--- NOTE | 2024-12-25 09:39 | CER_PTH ---
PATIENT: Matthew Travis LOC: [facility] U#:[id number] AGE/SX: 44/F ROOM: RE12/25/[address]: Barbara Ventura DO : 1980 BED: DIS: 12/25/2024 SPEC #: [id number] RECD: 12/25/24 12:38 STATUS: KEESHA REQ #: [id number] ORTIZ: 12/25/24 09:[address]: Barbara Ventura DEPT: Surgical Specimen RECD BY: Kiki Christina ENTERED: 12/25/24 12:41 SP TYPE: CER OTHR DR: Nicolas Buenrostro DO Tissues: 1 - CERVICAL CONE BX 2 - ENDOCERVICAL BX/CURRETTE Procedures: GROSS AND MICRO LEVEL 4 GROSS AND MICRO LEVEL 5 Comments: [id number]
--- NOTE | 2024-12-25 09:59 | ROE_ITS ---
Operative Note Operative Note PRE-OP DIAGNOSIS: ROMÁN-2?3 endocervix and ectocervix PROCEDURE: Cold knife conization with endocervical curettage SURGEON: Barbara Ventura ANESTHESIA TYPE: General LMA/ETT Refer to Anesthesia Record ESTIMATED BLOOD LOSS: 10 PATHOLOGY: other (Cervical conization, suture at the 12:00 of the ectocervix. Endocervical curettage) COMPLICATIONS: None Patient was transported to: same day Indications: ROMÁN-2?3 ectocervix and endocervix Findings: Visually normal-appearing cervix. Transformation zone visualized. Procedure Description: After full informed consent was obtained, patient was taken the operating suite with an IV running. She was placed in the dorsal supine position and general anesthesia administered via LMA. She was then placed in the modified dorsal lithotomy position in [facility] stirrups. She was prepped and draped in the usual sterile fashion. A timeout was held. She had pneumatic compression stockings for DVT prophylaxis. No antibiotic prophylaxis was warranted. Speculum was inserted in the vaginal vault for visualization of the entirety of the cervix. Transformation zone identified. Stay suture placed at the 5 and 8 o'clock position with 2-0 chromic suture. Face of the cervix was infiltrated with 1% lidocaine with epinephrine. With retraction of the cervix, a cervical conization with a scalpel was undertaken. The entirety of the transformation zone excised. Endocervical margin was cut with a Rider scissor. There was a marking suture placed at the 12 o'clock position of the ectocervix. At this point endocervical curettage was performed. Base of the surgical excision was cauterized with electrocautery and Monsel's solution placed. Base of the conization specimen was hemostatic. Stay sutures were cut to approximately 3 cm on each side. The speculum was removed and the patient was returned to the dorsal supine position. She will point anesthesia without difficulty. She was taken the postanesthesia care unit in stable condition. Findings: Visually normal-appearing cervix and transformation zone Complications: None apparent Pathology: 1. Cervical conization with marking suture at the 12 o'clock position 2. endocervical curettage Fluids: Crystalloid per anesthesia EBL: 10 mL Date of Procedure: 12/25/24
[2024-12-25] MEDS: oxyCODONE 5 MG TAB PO (10:43)
--- NOTE | 2024-12-25 11:00 | W.ANESPOSTOP ---
Postoperative Evaluation Date, Time and Location Date Performed: 12/25/24 Time Performed: 11:00 Patient Location: Day Surgery Unit Vital Signs Most Recent Imported Vital Signs: Most Recent Vital Signs Temp Pulse Resp BP Pulse Ox 36.1 C L 57 L 16 131/75 100 12/25/24 10:44 12/25/24 10:44 12/25/24 10:44 12/25/24 10:44 12/25/24 10:44 Pain Score Most Recent Pain Score: Most Recent Pain Score Pain Level 6 12/25/24 10:44 Assessment Mental Status: Awake (Alert & Oriented to Patient Baseline) Airway and Respiratory Function: Patent airway with normal (patient baseline) respiratory exam Cardiovascular Function: Hemodynamically Stable Hydration Status: Adequately Hydrated Nausea & Vomiting: No Nausea or Vomiting Pain: Pain is Moderate or Severe Postoperative Pain Management: Pain being addressed with medication Peripheral Nerve Block: Patient did not receive a nerve block
== END 2024-12-25 11:20 | disposition home or self-care (01) ==
LOC: SUR 07:06
PROVIDERS: PCP Family Medicine; Visit Provider Obstetrics & Gynecology
PROC: 0UB97ZZ Excision of Uterus, Via Natural or Artificial Opening (ICD-10-PCS; CPT 57520; principal; 2024-12-25 08:30)
DX: D06.7 Carcinoma in situ of other parts of cervix (principal); E10.9 Type 1 diabetes mellitus without complications
CPT/HCPCS: 57520; 81025; 88305; 88307; J0131; J1100; J1885; J2003; J2004; J2405; J2704; J3010